=== PATIENT | male | born 1970 | race Caucasian/White ===

== ENCOUNTER 2018-10-15 06:19 | Emergency (ER) | payer SELFPAY ==
[~2018-10-15] VITALS: Ht 170.2 cm; Wt 72.8 kg
[2018-10-15 06:22] VITALS: BP 157/96; PULSE 80; RESP 20; Ht 170.2 cm; Wt 72.8 kg
== END 2018-10-15 09:40 | disposition left against medical advice (07) ==
LOC: E/R 06:19
DX: Z53.21 Procedure and treatment not carried out due to patient leaving prior to being seen by health care provider (principal)